=== PATIENT | female | born 1960 | race Caucasian/White ===

== ENCOUNTER 2023-09-11 05:40 | Day surgery (SDC) | payer OTHER ==
[~2023-09-11] VITALS: Ht 167.6 cm; Wt 75.0 kg
[~2023-09-11 05:40] MED LIST: FLUOXETINE HCL20 MG PO; HYDROCODON-ACE1 EA10 PO; LEVOTHYROXINE75 MCG PO; VENTOLIN HFA18 GM INH
[2023-09-11 06:04] VITALS: BP 160/95
[2023-09-11] MEDS ORDERED: LISINOPRIL10 MG PO (06:07)
--- NOTE | 2023-09-11 07:47 | NUR ---
ROUNDS. PT GONE FOR PROCEDURE. PROVIDED SILENT PRAYER.
[2023-09-11 08:31] VITALS: BP 116/89
--- NOTE | 2023-09-11 08:47 | NUR ---
09/11/23 [address] TO BEDSIDE TALKING WITH PT. PT ASKS QUESTIONS, DROWSY, ORIENTED YO ALL. 0845 PT SITTING UP AT EDGE OF BED, TOLERATING WELL. DENIES PAIN & N/V. DC INFORMATION PROVIDED
--- NOTE | 2023-09-12 10:25 | PATH ---
[facility] [address] [place], [place] [address] Signed SPECIMEN(S): A CECUM COLON BIOPSY SPECIMEN(S): B RECTUM SPECIMEN SOURCE: A. CECUM COLON BIOPSY B. RECTUM CLINICAL HISTORY: Diarrhea. Normal colon. FINAL PATHOLOGIC DIAGNOSIS: A. Cecum, biopsy: - Colonic mucosa with no significant pathologic changes B. Rectum, biopsy: - Colonic mucosa with no significant pathologic changes BRP MICROSCOPIC EXAMINATION: Histologic sections of all submitted blocks are examined by light microscopy. These findings, together with the gross examination, support the pathologic diagnosis. GROSS DESCRIPTION: A. The specimen, labeled and designated "Christian Ashraf, " and designated on the requisition "colon, cecum biopsy," is received in formalin and consists of one mcduffie soft tissue fragment, 0.7 cm. Entirely submitted in (A1). B. The specimen, labeled and designated "Christian Ashraf, " and designated on the requisition "colon, rectum biopsy," is received in formalin and consists of two mcduffie soft tissue fragments, ranging from 0.3 to 0.4 cm. Entirely submitted in (B1). MMA (under the direct supervision of a pathologist) The Gross Description was prepared using a voice recognition system. The report was reviewed for accuracy; however, sound-alike word errors, addition and/or deletions may occur. If there is any question about this report, please contact Client Services. ADDITIONAL NOTES: Immunohistochemical and/or in situ hybridization studies if performed in this case included appropriate positive controls that reacted as expected. This test was developed and its performance PATIENT NAME: MAGDY ASHRAF PATHOLOGY DATE OF : 64 REPORT #: [id number] PHYSICIAN: ELMER WILSON PCP: KENDRA ANDREWS MD REPORT IS CONFIDENTIAL AND NOT TO BE RELEASED WITHOUT AUTHORIZATION [address] [place], [place] [address] Signed characteristics determined by [employer]. It has not been cleared or approved by the U.S. Food and Drug Administration. The FDA has determined that such clearance or approval is not necessary. This test is used for clinical purposes. It should not be regarded as investigational or for research. [employer] is certified under the Clinical Laboratory Improvement Amendments of 1988 (CLIA) as qualified to perform high complexity clinical laboratory testing. PERFORMING LABORATORY: Technical component was performed by [employer] [facility], [address] [place] [address] (CLIA# [id number]). Professional interpretation was performed by [facility], [address] [place] [address] (CLIA#: [id number]). Diagnostician: Ryne Vergara MD Pathologist Electronically Signed 09/12/2023 Copies: ~ PATIENT NAME: MAGDY ASHRAF PATHOLOGY DATE OF : 64 REPORT #: [id number] PHYSICIAN: ELMER PATHOLOGY PCP: KENDRA ANDREWS MD REPORT IS CONFIDENTIAL AND NOT TO BE RELEASED WITHOUT AUTHORIZATION
--- NOTE | 2023-09-13 09:48 | OR ---
[facility] [address] [place], [place] [address] Signed DATE OF OPERATION: 09/11/2023 SURGEON: Breann Carpenter MD PREOPERATIVE DIAGNOSIS: Colon screening, episodic diarrhea. POSTOPERATIVE DIAGNOSIS: Normal-appearing colon. PROCEDURE: Total colonoscopy to cecum with biopsy of cecum and rectum. ANESTHESIA: Intravenous sedation; fentanyl 150 mcg, Versed 8 mg. INDICATION: This 63-year-old white woman is a patient of Anaid Humphries MD. The patient lives in [place]. She previously underwent colonoscopy by Dr. Kendra Ngo in [place], [place]. This was said to be negative. She has no family history of colon cancer. She has no associated rectal bleeding, but does have some diarrhea from time to time. She is admitted at this time to undergo colonoscopy. She understands the risk of bleeding, infection, and perforation. FINDINGS: The prep was quite excellent. Complete colonoscopy was undertaken to the cecum. Attempts to intubate the ileum were unsuccessful though were attempted. The colon throughout its length appeared normal. Biopsies were taken of the cecum and rectum to rule out occult colitis. DESCRIPTION OF PROCEDURE: The patient was brought to the endoscopy suite and placed in lateral decubitus position, given intravenous sedation to the point of slurred speech and nystagmus. Digital rectal examination was normal. An Olympus video colonoscope was passed in the rectum and manipulated throughout the colon ultimately intubating the cecum itself. The ileocecal valve and appendiceal orifice were normal. Attempts were made to intubate the ileum, but it was unsuccessful unfortunately. Biopsies were taken of the cecum on the basis of her episodic diarrhea to assess for occult colitis. The scope was then carefully withdrawn and examination Electronically Signed By: BREANN CARPENTER MD 09/13/23 0948 PATIENT NAME: MAGDY MARC OPERATIVE REPORT DATE OF : 64 REPORT #: [id number] PHYSICIAN: BREANN CARPENTER MD PCP: KENDRA NGO MD REPORT IS CONFIDENTIAL AND NOT TO BE RELEASED WITHOUT AUTHORIZATION [facility] [address] [place], [place] [address] Signed throughout showed no sign of polyps, diverticular formation, colitis, or cancer. Retroflexed view of the rectum was normal as well. There was some hypertrophied anal papilla, but minimally so. Biopsy was taken of the rectum to assess for occult colitis as well. The scope was removed and the patient was taken to the recovery room in good condition. CONCLUDING DIAGNOSIS: Normal colon grossly. PLAN: We will review her pathology reports. Recommend high-fiber diet and repeat colonoscopy in 10 years, sooner if symptoms should occur. If her diarrhea should worsen, I am happy to assist in its management as well. MD CLAUDIA Pryor/NARCISOL /[id number] cc: Anaid Humphries MD Copies: ~ Electronically Signed By: BREANN CARPENTER MD 09/13/23 0948 PATIENT NAME: MAGDY MARC OPERATIVE REPORT DATE OF : 64 REPORT #: [id number] PHYSICIAN: BREANN CARPENTER MD PCP: KENDRA NGO MD REPORT IS CONFIDENTIAL AND NOT TO BE RELEASED WITHOUT AUTHORIZATION
== END 2023-09-11 08:53 | disposition home or self-care (01) ==
LOC: DS 05:40 → OPS 05:40 → DS 08:15 → OPS 08:53
PROVIDERS: ATTEND Surgery
PROC: 0DBP8ZX Excision of Rectum, Via Natural or Artificial Opening Endoscopic, Diagnostic (ICD-10-PCS; 2023-09-11)
PROC: 0DBH8ZX Excision of Cecum, Via Natural or Artificial Opening Endoscopic, Diagnostic (ICD-10-PCS; principal; 2023-09-11 07:30)
DX: Z12.11 Encounter for screening for malignant neoplasm of colon (principal); E03.9 Hypothyroidism, unspecified
CPT/HCPCS: 99153; G0500; J2250; J3010; J7121